=== PATIENT | female | born 1965 | race Two or more races ===

== ENCOUNTER 2021-07-29 18:05 | Inpatient (IN) | payer MEDICAID, OTHER ==
[~2021-07-29] VITALS: Ht 154.9 cm; Wt 52.2 kg
[2021-07-29] MEDS ORDERED: FUROSEMIDE 40 MG/4 ML VIAL IV ONE (21:30)
[2021-07-29 22:21] LABS: Basophils # (auto) 0 10 ^3/uL (0-0.2); Basophils % (auto) 0.1 % (0.0-2.0); Eosinophils # (auto) 0 10 ^3/uL (0-0.8); Hematocrit 43.4 % (36.0-46.0); Lymphocytes # (auto) 0.8 10 ^3/uL (0.4-5.4); Lymphocytes % (auto) 3.6 % (10.0-50.0); Mean Corpuscular Hemoglobin 28.3 pg (28.0-32.0); Mean Corpuscular Hgb Conc. 32.2 g/dL (32.0-36.0); Mean Corpuscular Volume 87.8 fL (80.0-100.0); Monocytes # (auto) 0.9 10 ^3/uL (0-1.3); Monocytes % (auto) 4.2 % (0.0-12.0); Neutrophils # (auto) 20.1 10 ^3/uL (1.6-8.6); Neutrophils % (auto) 92.1 % (37.0-80.0); Red Blood Cells 4.94 10^6/uL (4.0-5.20); Red Cell Distribution Width 14.5 % (11.8-14.3); White Blood Cell 21.9 10^3/uL (4.4-10.8)
[2021-07-29 22:55] LABS: Albumin 2.6 g/dL (3.4-5.0); Calcium 8.7 mg/dL (8.5-10.1); Magnesium 3.4 mg/dL (1.6-2.6); Potassium 5.3 mmol/L (3.5-5.1)
[2021-07-29 23:00] LABS: BUN/Creatinine Ratio 66.2; Bilirubin, Total 0.4 mg/dL (0.2-1.0)
[2021-07-29 23:04] LABS: Lactic Acid w/Reflex 2.1 mmol/L (0.4-2.0)
[2021-07-29] MEDS ORDERED: ALBUTEROL SULF 2.5 MG/0.5ML(0.5%) NEB SOLN NEB PRN (23:15)
[2021-07-29] MEDS ORDERED: ACETAMINOPHEN 325 MG TAB PO PRN (23:15)
[2021-07-29] MEDS ORDERED: DEXTROSE (50%) 50ML SYRG IV PRN (23:15)
[2021-07-29] MEDS ORDERED: NITROGLYCERIN 0.4 MG SL TAB SL PRN (23:15)
[2021-07-29] MEDS ORDERED: TEMAZEPAM 15 MG CAP PO PRN (23:15)
[2021-07-29] MEDS ORDERED: DexAMETHasone SOD PHOS 10MG/1ML VIAL INJ IV ONE (23:15)
[2021-07-29] MEDS ORDERED: MORPHINE SULFATE INJECTION 2 MG/ML SYRG IV PRN (23:15)
[2021-07-29] MEDS ORDERED: AZITHROMYCIN 500MG/ 250ML 250 ML IV ONE (23:15)
[2021-07-29] MEDS ORDERED: cefTRIAXone 1GM/50ML D5W 50 ML IV ONE (23:15)
[2021-07-29] MEDS ORDERED: ONDANSETRON HCL 4 MG/2 ML VIAL IV PRN (23:15)
[2021-07-30] MEDS ORDERED: HALOPERIDOL LACTATE 5 MG/ML INJ VIAL IM ONE (02:30)
[2021-07-30 06:25] LABS: Urine Bacteria NONE SEEN /hpf (None Seen); Urine Blood 3+ /uL (Negative); Urine Hyaline Cast FEW /lpf (0 - 2); Urine Specific Gravity 1.013 (1.001-1.035); Urine WBC 9 /hpf (0 - 5)
[2021-07-30 06:45] LABS: Basophils # (auto) 0.3 10 ^3/uL (0-0.2); Eosinophils # (auto) 0 10 ^3/uL (0-0.8); Hematocrit 43.1 % (36.0-46.0); Hemoglobin 14.1 g/dL (12.2-16.2); Lymphocytes # (auto) 0.7 10 ^3/uL (0.4-5.4); Lymphocytes % (auto) 2.7 % (10.0-50.0); Mean Corpuscular Hemoglobin 29.1 pg (28.0-32.0); Mean Corpuscular Hgb Conc. 32.8 g/dL (32.0-36.0); Mean Corpuscular Volume 88.7 fL (80.0-100.0); Monocytes # (auto) 0.7 10 ^3/uL (0-1.3); Monocytes % (auto) 2.8 % (0.0-12.0); Neutrophils # (auto) 22.9 10 ^3/uL (1.6-8.6); Neutrophils % (auto) 93.5 % (37.0-80.0); Red Blood Cells 4.86 10^6/uL (4.0-5.20); Red Cell Distribution Width 14.4 % (11.8-14.3); White Blood Cell 24.5 10^3/uL (4.4-10.8)
[2021-07-30] MEDS ORDERED: InsuLIN REG 1unit/0.01ml Soln (100units/ml) SC SCH (07:00)
[2021-07-30] MEDS: ACCU-CHEK COMFORT CURVE STRIP VI SCH ×7 (08:50→18:21)
[2021-07-30 09:02] LABS: Albumin 2.7 g/dL (3.4-5.0); Calcium 8.4 mg/dL (8.5-10.1); Potassium 5.2 mmol/L (3.5-5.1)
[2021-07-30 09:10] LABS: BUN/Creatinine Ratio 76.4; Bilirubin, Total 0.3 mg/dL (0.2-1.0); Total Protein 6.8 g/dL (6.4-8.2)
[2021-07-30] MEDS ORDERED: MORPHINE SULFATE INJECTION 2 MG/ML SYRG IV PRN ×2 (09:45→20:15)
[2021-07-30] MEDS ORDERED: levETIRAcetam 500 MG TAB PO SCH (10:00)
[2021-07-30] MEDS ORDERED: ZINC SULFATE 220mg CAP or TAB PO SCH (10:00)
[2021-07-30] MEDS ORDERED: InsuLIN R (HUMAN) 100 UNITS in SODIUM CHL 0.9% 99 ML IV SCH (12:00)
[2021-07-30] MEDS ORDERED: HYDROmorphone HCL 2 MG/ML VL IV PRN (12:00)
[2021-07-30] MEDS ORDERED: DEXTROSE (50%) 50ML SYRG IV PRN (12:00)
[2021-07-30] MEDS: SODIUM CHLORIDE 0.9% 1,000 ML IV SCH ×2 (12:13→18:40)
[2021-07-30 13:50] LABS: BUN/Creatinine Ratio 74.7; Calcium 8.3 mg/dL (8.5-10.1); Potassium 4.9 mmol/L (3.5-5.1)
[2021-07-30] MEDS ORDERED: VANCOMYCIN PER PHARMACY 0 MG IV SCH (16:15)
[2021-07-30] MEDS ORDERED: VANCOMYCIN 750mg/250ml 250 ML IV SCH (17:00)
[2021-07-30] MEDS ORDERED: MIDAZOLAM DRIP 50 mg/50mL 50 ML IV ONE (17:08)
[2021-07-30] MEDS ORDERED: NOREPINEPHRINE 8 MG/250ML KIT 250 ML IV ONE (17:26)
[2021-07-30] MEDS ORDERED: PIPERACILLIN-TAZOB 3.375GM 100 ML IV SCH (18:00)
[2021-07-30] MEDS ORDERED: RIVAROXABAN 20 MG TAB PO SCH (18:00)
[2021-07-30] MEDS ORDERED: PHENYLEPHRINE IV 250 ML IV SCH (18:00)
[2021-07-30] MEDS ORDERED: PHENYLEPHRINE IV 250 ML IV ONE (18:01)
[2021-07-30] MEDS ORDERED: fentaNYL Drip 2500mCg/250mlNS 250 ML IV SCH (18:45)
[2021-07-30] MEDS ORDERED: MIDAZOLAM DRIP 50 mg/50mL 50 ML IV SCH (18:45)
[2021-07-30 19:31] LABS: BUN/Creatinine Ratio 77.8; Calcium 7.7 mg/dL (8.5-10.1); Magnesium 2.2 mg/dL (1.6-2.6); Phosphorus 4.7 mg/dL (2.5-4.90); Potassium 4.3 mmol/L (3.5-5.1)
[2021-07-30] MEDS ORDERED: LORazepam 2MG/ML-1ML VIAL IV PRN (20:15)
[2021-07-30 20:30] VITALS: BP 75/41
[2021-07-30] MEDS ORDERED: cefTRIAXone 1GM/50ML D5W 50 ML IV SCH (21:00)
[2021-07-30] MEDS ORDERED: DexAMETHasone SOD PHOS 10MG/1ML VIAL INJ IV SCH (22:00)
[2021-07-30] MEDS ORDERED: AZITHROMYCIN 500MG/ 250ML 250 ML IV SCH (22:00)
== END 2021-07-30 20:38 | DRG 720 ==
LOC: EDBD 18:05 → ER 18:08 → TELE 23:01
PROVIDERS: ADMIT Nurse Practitioner; ATTEND Internal Medicine
PROC: 06HY33Z Insertion of Infusion Device into Lower Vein, Percutaneous Approach (ICD-10-PCS; 2021-07-29)
PROC: 5A12012 Performance of Cardiac Output, Single, Manual (ICD-10-PCS; principal; 2021-07-30)
DX: A41.9 Sepsis, unspecified organism (principal); J96.01 Acute respiratory failure with hypoxia; I46.9 Cardiac arrest, cause unspecified; E11.10 Type 2 diabetes mellitus with ketoacidosis without coma; J18.9 Pneumonia, unspecified organism; E44.0 Moderate protein-calorie malnutrition; C79.9 Secondary malignant neoplasm of unspecified site; E87.1 Hypo-osmolality and hyponatremia; F41.9 Anxiety disorder, unspecified; I10 Essential (primary) hypertension; J45.909 Unspecified asthma, uncomplicated; E11.65 Type 2 diabetes mellitus with hyperglycemia; Z20.822 Contact with and (suspected) exposure to COVID-19; Z68.21 Body mass index [BMI] 21.0-21.9, adult; Z79.4 Long term (current) use of insulin; Z85.3 Personal history of malignant neoplasm of breast; Z66 Do not resuscitate; Z92.21 Personal history of antineoplastic chemotherapy
CPT/HCPCS: 31500; 36415; 36600; 71045; 80048; 80053; 81001; 82805; 82962; 83605; 83735; 83880; 84100; 84484; 85025; 85379; 87040; 87070; 87205; 92950; 93005; 93306; 94002; 94640; 96374; 99291; G0378; J0696; J1100; J1815; J2250; J2543